=== PATIENT | female | born 1945 | race Caucasian/White ===

== ENCOUNTER → 2016-05-14 | Outpatient (CLI) | payer OTHER, MEDICARE ==
[~2016-05-14] MED LIST: ACIPHEX20 MG PO; ANTIVERT12.5 MG PO; CLARITIN10 M3 PO; FIORICET WI1 CAPSULE PO; FLONASE ALLERG9.9 ML BOTH NARES; GABAPENTIN100 MG PO; GLUCOTROL XL5 MG PO; INDERAL LA120 MG PO; LASIX20 MG PO; LO-DOSE ASPIRIN81 M2 PO; LORAZEPAM2 MG PO; LOVASTATIN10 MG PO; MAXALT10 MG PO; METFORMIN HCL500 MG PO; NEURONTIN300 MG PO; PREMARIN0.625 MG PO; TURMERIC500 MG PO; TYLENOL EXTRA500 MG PO; VITAMIN B-6100 MG PO
== END | disposition home or self-care (01) ==
LOC: NUC 08:24
DX: M51.36 Other intervertebral disc degeneration, lumbar region (principal)
CPT/HCPCS: 78306; A9503

== ENCOUNTER 2016-05-16 06:56 | Day surgery (SDC) | payer OTHER, MEDICARE ==
[~2016-05-16] VITALS: Ht 165.1 cm; Wt 76.6 kg
[~2016-05-16 06:56] MED LIST changes: -TYLENOL EXTRA500 MG PO
[2016-05-16 07:35] LABS: POINT-OF-CARE METER ID UU14174212
== END 2016-05-16 08:50 | disposition home or self-care (01) ==
LOC: PAIN 06:56 → SDC 07:30 → PAIN 07:30
PROVIDERS: Anesthesiology Pain Medicine
DX: M47.897 Other spondylosis, lumbosacral region (principal); M46.1 Sacroiliitis, not elsewhere classified; M48.06 Spinal stenosis, lumbar region; E78.5 Hyperlipidemia, unspecified; E11.42 Type 2 diabetes mellitus with diabetic polyneuropathy; M19.90 Unspecified osteoarthritis, unspecified site; K21.9 Gastro-esophageal reflux disease without esophagitis; R01.1 Cardiac murmur, unspecified
CPT/HCPCS: 82948; J1030; J2250; J3010; S0020

== ENCOUNTER 2016-05-23 06:58 | Day surgery (SDC) | payer OTHER, MEDICARE ==
[~2016-05-23] VITALS: Ht 165.1 cm; Wt 76.6 kg
[2016-05-23] MEDS ORDERED: TYLENOL EXTRA500 MG PO (07:19)
[2016-05-23 07:55] LABS: POINT-OF-CARE METER ID UU14174212
== END 2016-05-23 09:02 | disposition home or self-care (01) ==
LOC: PAIN 06:58 → SDC 07:30 → PAIN 09:02
PROVIDERS: Anesthesiology Pain Medicine
PROC: 015B3ZZ Destruction of Lumbar Nerve, Percutaneous Approach (ICD-10-PCS; principal; 2016-05-23)
DX: M47.896 Other spondylosis, lumbar region (principal); M46.1 Sacroiliitis, not elsewhere classified; M48.06 Spinal stenosis, lumbar region; K21.9 Gastro-esophageal reflux disease without esophagitis; E11.42 Type 2 diabetes mellitus with diabetic polyneuropathy; F41.1 Generalized anxiety disorder; R01.1 Cardiac murmur, unspecified; E78.5 Hyperlipidemia, unspecified; Z79.82 Long term (current) use of aspirin
CPT/HCPCS: 82948; J1030; J2250; J3010; S0020